=== PATIENT | male | born 1960 | race Caucasian/White ===

== ENCOUNTER 2023-08-13 18:25 | Emergency (ER) | payer OTHER, SELFPAY ==
[2023-08-13 18:30] VITALS: BP 160/93; PULSE 81; RESP 20; TEMP 36.8; O2SAT 98; BMI 29.6
--- NOTE | 2023-08-13 18:53 | ED_ITS ---
HPI - General Adult General Date Seen: 08/13/23 Chief complaint: Flank Pain Stated complaint: Lower L abdomen and back-vomit Time Seen by Provider: 08/13/23 18:27 History of Present Illness HPI narrative: This is a very pleasant previous healthy 62-year-old male presenting to the ER today with pain involving his left low back and left flank and left lower quadrant of his abdomen. He 1st noted some smiled symptoms in the left side of his abdomen this morning. He actually had 4 bowel movements this morning but not really having any diarrhea or bloody stool. No urinary symptoms. Later on this afternoon symptoms got worse and he had more intense severe pain affecting his left lower quadrant along the left groin. No pain radiating into his testicles. With that he became nauseous and had 1 episode of nonbilious, nonbloody vomiting. No fever or chills. After that he also developed pain in the left side of his low back/flank. Subsequently the pain is now more isolated only to the left flank it is not really bothering the left lower quadrant of the abdomen more. Still rates the pain is very severe and uncomfortable. Related Data Home Medications ?Medication ?Instructions ?Recorded ?Confirmed amlodipine 08/13/23 Allergies Allergy/AdvReac Type Severity Reaction Status Date / Time No Known Drug Allergies Allergy Verified 08/13/23 18:34 PFSH PFS Social History Non-prescribed substance use: denies use Exam Narrative: Exam Narrative: Constitutional: Appears well-developed and well-nourished. Alert. Conversant. Non toxic. HENT: Head: Atraumatic. Nose: Nose normal. Mouth/Throat: Oral mucosa is clear and moist. no trismus. Eyes: Conjunctivae normal. EOM normal. Pupils equal, round, and reactive to light. No scleral icterus. Neck: Normal range of motion. Neck supple. No tracheal deviation present. Cardiovascular: Normal rate, regular rhythm. No gallop. No friction rub. No murmur heard. Symmetric radial artery pulses Pulmonary/Chest: Effort normal. No stridor. No respiratory distress. No wheezes. No rales. No rhonchi . No tenderness. Abdominal: Soft. Bowel sounds normal. No distension. No mass. Mild left low back/left flank tenderness. No left lower quadrant tenderness. No upper abdominal tenderness. No right-sided tenderness. No rebound. No guarding. No inguinal masses or hernia. Musculoskeletal: RUE: Normal range of motion. No tenderness. No deformity LUE: Normal range of motion. No tenderness. No deformity RLE: Normal range of motion. No edema. No tenderness. No deformity LLE: Normal range of motion. No edema. No tenderness. No deformity Neurological: Alert and oriented to person, place, and time. Normal strength. CN II-VII intact. No sensory deficit. GCS eye subscore is 4. GCS verbal subscore is 5. GCS motor subscore is 6. Normal coordination Skin: Skin is warm and dry. No rash noted. No pallor. Normal capillary refill. Psychiatric: Normal mood. Normal affect. Const: Vital Signs, click to edit/add: Vital Signs - 24 hr 08/13/23 18:30 08/13/23 19:26 08/13/23 20:21 Temperature 98.2 F Pulse Rate [Pulse Oximeter] 81 68 Respiratory Rate 20 Blood Pressure [Ri t Upper Arm] 160/93 H Pulse Oximetry 98 92 95 Oxygen Delivery Me thod Room Air Room Air Course Vital Signs Vital signs: Initial Vital Signs Temperature 98.2 F 08/13/23 18:30 Temperature Source Temporal Artery Scan 08/13/23 18:30 Pulse Rate 81 08/13/23 18:30 Respiratory Rate 20 08/13/23 18:30 Blood Pressure 160/93 H 08/13/23 18:30 Blood Pressure Mean 115 H 08/13/23 18:30 Blood Pressure Position Standing 08/13/23 18:30 Pulse Oximetry 98 08/13/23 18:30 Oxygen Delivery Method Room Air 08/13/23 18:30 Vital Signs Temperature 98.2 F 08/13/23 18:30 Pulse Rate 81 08/13/23 18:30 Respiratory Rate 20 08/13/23 18:30 Blood Pressure 160/93 H 08/13/23 18:30 Pulse Oximetry 98 08/13/23 18:30 Oxygen Delivery Method Room Air 08/13/23 18:30 Temperature 98.2 F 08/13/23 18:30 Pulse Rate 68 08/13/23 20:21 Respiratory Rate 20 08/13/23 18:30 Blood Pressure 160/93 H 08/13/23 18:30 Pulse Oximetry 95 08/13/23 20:21 Oxygen Delivery Method Room Air 08/13/23 20:21 Medications Administered Medications: Generic Name Dose Route Start Last Admin Trade Name Freq PRN Reason Stop Dose Admin Hydromorphone HCl 0.5 mg 08/13/23 18:53 08/13/23 19:00 Hydromorphone 0.5 Mg/0.5 Ml Inj IVP 0.5 mg Q1H PRN Administration Pain Hydromorphone HCl 0.5 mg 08/13/23 19:28 08/13/23 19:38 Hydromorphone 0.5 Mg/0.5 Ml Inj IVP 0.5 mg Q1H PRN Administration Pain Discontinued Medications Generic Name Dose Route Start Last Admin Trade Name Freq PRN Reason Stop Dose Admin Ketorolac Tromethamine 15 mg 08/13/23 18:53 08/13/23 19:00 Ketorolac 15 Mg/Ml Inj IVP 08/13/23 18:54 15 mg ONCE ONE Administration Ondansetron HCl 4 mg 08/13/23 18:53 08/13/23 19:00 Ondansetron 2 Mg/Ml Inj IVP 08/13/23 18:54 4 mg ONCE ONE Administration Medical Decision Making MDM Narrative Medical decision making narrative: This patient presents with left lower quadrant and left flank pain. Differential Diagnosis considered includes: Ureterolithiasis, UTI, pyelonephritis, AAA, colitis, diverticulitis, volvulus, among others. No right- sided pain makes appendicitis or cholecystitis much less likely. No evidence for shingles. No recent trauma. No sign of abdominal wall bruising. No trouble breathing or thoracic pain to suggest PE, pneumonia, pleural effusion, dissection. At this point, the evaluation indicates that ureterolithiasis is the cause of the patient's symptoms. There are no signs that this is an infected stone. The patient's pain is controlled in ED. The patient is hemodynamically stable in ED. I think the patient is safe for discharge. The plan is discharge to home with recheck by primary care physician or urology.They will return to the ED right away if symptoms worsen (e.g Return immediately for fevers greater than 100.4, increasing pain, other new symptoms develop). Ureterolithiasis precautions for home. Prescriptions for pain control, nausea control, and flomax were provided. The patient's questions were answered. 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 Discussed in detail with the patient and his . Patient will follow-up with primary care for surveillance he may need annual CT scans to monitor the splenic artery see if it is expanding. Lab Data Labs: Lab Results 08/13/23 08/13/23 Range/Units 18:40 18:45 WBC 6.13 (4.50-11.00) K/uL RBC 5.32 (4.30-5.90) m/uL Hgb 15.4 (13.5-17.5) gm/dL Hct 44.2 (37.0-53.0) % MCV 83 (80-100) fL MCH 29 (26-34) pg MCHC 35 (32-36) gm/dL RDW Coeff of Lucian 13.1 (11.5-15.5) % Plt Count 210 (140-440) K/uL Neut % (Auto) 59.2 (42.0-72.0) % Lymph % (Auto) 31.6 (20-44) % [place] % (Auto) 7.7 (0.0-11.0) % Eos % (Auto) 0.8 (0.0-7.0) % Baso % (Auto) 0.5 (0.0-3.0) % Neut # (Auto) 3.63 (1.7-7.0) K/uL Lymph # (Auto) 1.94 (0.90-2.90) K/uL [place] # (Auto) 0.50 (0.00-0.90) K/UL Eos # (Auto) 0.05 (0.00-0.50) K/uL Baso # (Auto) 0.03 (0.00-0.30) K/uL Abs Immat Gran (auto) 0.01 (0.00-0.30) K/uL Imm/Tot Granulo (auto) 0.2 % Sodium 142 (135-149) mmol/L Potassium 3.1 L (3.6-5.1) mmol/L Chloride 106 (96-114) mmol/L Carbon Dioxide 27 (20-32) mmol/L Anion Gap 9 (7-15) mEq/L BUN 16 (7-30) mg/dL Creatinine 0.9 (0.5-1.5) mg/dL Estimated Creat Clear 92.96 Estimated GFR 98 ml/min Glucose 178 H (60-115) mg/dL Calcium 9.5 (8.4-10.6) mg/dL Urine Color Yellow (Yellow) Urine Appearance Clear (Clear) Urine pH 7.0 (5.0-8.5) Ur Specific [place] 1.020 (1.000-1.030) Urine Protein Negative (Negative) Urine Glucose (UA) Negative (Negative) Urine Ketones Negative (Negative) Urine Blood Trace-intact A (Negative) Urine Nitrite Negative (Negative) Urine Bilirubin Negative (Negative) Urine Urobilinogen 0.2 (0.2-1.0) Ur Leukocyte Esterase Negative (Negative) Urine RBC 2-5 A (0-2) Urine WBC 2-5 (0-5) Other Sediment Moderate A (None) Urine Bacteria Few A (None) Imaging Data CT scan - abdomen: Attestation: I have reviewed the pertinent imaging results. My impression: 3 mm left UVJ kidney stone with hydronephrosis. Radiologist's impression: IMPRESSION: 1. [id number] left-sided hydronephrosis and hydroureter secondary to a 3.3 mm stone at the left ureterovesical junction. No additional urinary tract calculi are identified. 2. Calcified splenic granulomas. Well-circumscribed peripherally calcified 1.5 cm splenic artery aneurysms. Tiny left hepatic lobe cysts. Discharge Plan Discharge Clinical Impression: Kidney stone Patient Disposition: Home, Self-Care Condition: Stable Instructions: Kidney Stones (ED), Renal Colic (ED), How to Strain Your Urine (ED) Additional Instructions: As we discussed, try to drink adequate fluids stay hydrated while your passing this kidney stone. You can use Tylenol or ibuprofen if needed for pain. However, for severe pain use the prescription pain killer [place]. Use Zofran if needed for nausea. Take the Flomax once daily until you passed your kidney stone. This medication can help relax the tube were your kidney stone is stuck. Use caution with prescription pain killers because they do cause drowsiness, dizziness, so he should not drive a vehicle or operate machinery for 6 hours after taking a pain pill. Pain pills can also cause constipation. Pain pills can be addictive so do not take any more of your pain medication than absolutely necessary. If you have worsening symptoms such as uncontrolled pain, high fever, uncontrolled vomiting, come back to your nearest ER right away. If you have not passed this kidney stone within the next 1-2 weeks, you should follow-up with urology. You can contact your insurance company to see which Urology group is in network. Also, you could try to arrange follow-up with [facility]. Call their clinic [phone] to arrange a follow-up appointment. Although it is not related to your pain today, your CT scan shows that you have a small aneurysm of the splenic artery. This is something that you should monitor 3 your regular doctor's office. You may need to get a scan of your abdomen once a year for a couple of years to monitor this to see if it is getting larger. Prescriptions: No Action amlodipine Follow Up/Referrals: Chhaya Hogan MD [Primary Care Provider] - Stand Alone Forms: [employer] Info Instructions
--- NOTE | 2023-08-13 18:53 | CRLHL7_ITS ---
For Patients: As a result of the Century Cures Act, medical imaging exams and procedure reports are released immediately into your electronic medical record. You may view this report before your referring provider. If you have questions, please contact your health care provider. INDICATION: Left flank pain. Left lower quadrant abdominal pain. TECHNIQUE: Noncontrast CT of the abdomen and pelvis. COMPARISON: None. FINDINGS: Clear included lung bases. The unenhanced liver is negative for masses or biliary dilatation. There are 2-3 very tiny cysts within the left hepatic lobe. The spleen is within normal limits. Calcified splenic granulomas. Well-circumscribed densely calcified splenic artery aneurysm at the splenic hilus measuring up to 1.5 cm, image 45 series 2. The unenhanced pancreas, gallbladder, adrenal glands, and right kidney are within normal limits. [id number] left-sided hydronephrosis and hydroureter secondary to a 3.3 mm stone at the left ureterovesical junction image 143 series 2. No other urinary tract calculi identified. Scattered vascular calcification within a normal caliber abdominal aorta and iliac arteries. Slight prostatic enlargement. Normal seminal vesicles. There is no evidence for abdominal pelvic ascites or lymphadenopathy. There is no evidence for bowel obstruction or ileus. Normal appendix. No diverticular disease. The included skeleton is negative for fractures. IMPRESSION: 1. [id number] left-sided hydronephrosis and hydroureter secondary to a 3.3 mm stone at the left ureterovesical junction. No additional urinary tract calculi are identified. 2. Calcified splenic granulomas. Well-circumscribed peripherally calcified 1.5 cm splenic artery aneurysms. Tiny left hepatic lobe cysts. Please note that all CT scans at this facility use dose modulation, iterative reconstruction, and/or weight-based dosing when appropriate to reduce radiation dose to as low as reasonably achievable. Dictated by Jacinto Balderrama MD @ 08/13/2023 7:58:12 PM (Electronically Signed)
[2023-08-13 18:57] LABS: Appearance Urine Clear (Clear); Bilirubin Urine Negative (Negative); Blood Urine Trace-intact (Negative); Color Urine Yellow (Yellow); Glucose Urine Negative (Negative); Ketones Urine Negative (Negative); Leukocyte Esterase Urine Negative (Negative); Nitrite Urine Negative (Negative); Protein Urine Negative (Negative); Urobilinogen Urine 0.2 (0.2-1.0)
[2023-08-13] MEDS: HYDROmorphone 0.5 mg/0.5 ml inj IVP ×2 (19:00→19:38)
[2023-08-13] MEDS: ONDANSETRON 2 MG/ML inj 4 MG IVP (19:00)
[2023-08-13] MEDS: KETOROLAC 15 MG/ML inj IVP (19:00)
[2023-08-13 19:06] LABS: Basophils Absolute Auto 0.03 K/uL (0.00-0.30); Basophils Percent Auto 0.5 % (0.0-3.0); Eosinophils Absolute Auto 0.05 K/uL (0.00-0.50); Eosinophils Percent Auto 0.8 % (0.0-7.0); Hematocrit 44.2 % (37.0-53.0); Hemoglobin* 15.4 gm/dL (13.5-17.5); Immature Granulocytes Abs Auto 0.01 K/uL (0.00-0.30); Immature Granulocytes Pct Auto 0.2 %; Lymphocytes Absolute Auto 1.94 K/uL (0.90-2.90); Lymphocytes Percent Auto 31.6 % (20-44); Mean Corpuscular HGB Conc 35 gm/dL (32-36); Mean Corpuscular Hemoglobin 29 pg (26-34); Mean Corpuscular Volume 83 fL (80-100); Monocytes Percent Auto 7.7 % (0.0-11.0); Neutrophils Absolute Auto 3.63 K/uL (1.7-7.0); Neutrophils Percent Auto 59.2 % (42.0-72.0); Platelet Count* 210 K/uL (140-440); RDW Coefficient of Variation % 13.1 % (11.5-15.5); Red Blood Count 5.32 m/uL (4.30-5.90); White Blood Count* 6.13 K/uL (4.50-11.00)
[2023-08-13 19:12] LABS: Bacteria Urine Few; Other Sediment Urine Moderate
[2023-08-13 19:14] LABS: Slide Review Reflex No
[2023-08-13 19:19] LABS: Chloride* 106 mmol/L (96-114); Potassium* 3.1 mmol/L (3.6-5.1); Sodium* 142 mmol/L (135-149)
[2023-08-13 19:22] LABS: Anion Gap 9 mEq/L (7-15); Blood Urea Nitrogen* 16 mg/dL (7-30); Carbon Dioxide* 27 mmol/L (20-32); Creatinine* 0.9 mg/dL (0.5-1.5); Est. Creatinine Clearance* 92.96; Estimated Glomerular Filt Rate 98 ml/min
[2023-08-13 19:23] LABS: Calcium* 9.5 mg/dL (8.4-10.6); Glucose* 178 mg/dL (60-115)
[2023-08-13 19:26] VITALS: O2SAT 92
[2023-08-13 20:21] VITALS: PULSE 68; O2SAT 95
[2023-08-13] MEDS: HYDROCODONE-ACETAMIN 5-325 MG 1 TAB PO (20:30)
== END 2023-08-13 20:49 | disposition home or self-care (01) ==
PROVIDERS: Emergency Provider Emergency Medicine; PCP Family Medicine
DX: N20.0 Calculus of kidney (principal)
CPT/HCPCS: 36415; 74176; 80048; 81001; 85025; 87086; 94761; 99283; 99284; A9270; J1170; J1885; J2405

== ENCOUNTER 2024-02-01 13:55 | Emergency (ER) | payer SELFPAY ==
[2024-02-01] VITALS (25 sets, daily range): BP systolic 128–162; BP diastolic 81–94; PULSE 67–84; RESP 16–18; TEMP 36.6; O2SAT 95–100; BMI 29.3
--- NOTE | 2024-02-01 14:15 | ED_ITS ---
HPI - General Adult General Time Seen by Provider: 14:41 Date Seen: 02/01/24 Chief complaint: Chest Pain Stated complaint: Chest Pain Time Seen by Provider: 02/01/24 14:15 Source: patient and RN notes reviewed Mode of arrival: ambulatory Limitations: no limitations History of Present Illness HPI narrative: This 63-year-old male is coming in with concern of right-sided chest symptoms as well as headache. His headache is actually more concerning to him than his chest symptoms. He admits that he started really to note the chest symptoms after he got his coronary CT calcium score back. He had a coronary artery calcium score of 38.6 consistent with mild calcification, this appears to be in the LAD and the RCA. The left main and circumflex was 0. He had this done on 01/21/2024. He states it was done at his doctor's recommendation. He thinks this is probably been there, thought it was reflux. He does take a lot of Tums. He has not really noted any change with exercise, he walks 3 times a week about 2-1/2 miles with hills. He notes no dyspnea on exertion or shortness of breath, no chest symptoms with activity but admits he really has not done any walking since he got this cardiac report back. He states it just feels like some buddies pushing on the chest, almost like when your arm is grabbed where you can feel it but there is no pain. It will come and go, sometimes last longer about 15-20 minutes sometimes less than 5 minutes. He has never had a stress test before, notes no family history of cardiac disease that he is aware of. He has not had any underlying illness or recent illness. He does have underlying obstructive sleep apnea and uses a CPAP, he states this is what prompted his doctor recommend this test to him. Is on amlodipine for hypertension, did start Crestor once they had this result back. He has also been given 81 mg aspirin to take daily. He states he has underlying hemochromatosis that was diagnosed. He notes that he was told he had something in his abdomen, was diagnosed with kidney stones this summer. Did look at that CT report and he was found to have hepatic cysts and a splenic aneurysm 1.5 cm with peripheral calcification on his CT done for kidney stones on 08/13/2023. He notes that left-sided headache that is been present on and off for about 2 weeks is more concerning to him. There is no visual changes, is felt in the left caodaism. No trauma, no fevers or chills. He notes he always feels somewhat achy in general, there is nothing out of the ordinary. Said multiple orthopedic surgeries, 3 on his ankle and has an upcoming orthopedic appointment in March to re-evaluate this right ankle. He has had right shoulder surgery with plate and 6 screws in it. He has had right elbow surgery, left knee surgery. Can not really safe he is having any symptoms right now ir not, certainly is not noting any as far as headache or chest symptoms. Related Data Home Medications ?Medication ?Instructions ?Recorded ?Confirmed amlodipine 08/13/23 aspirin 81 mg tablet,delayed 81 mg PO DAILY 02/01/24 02/01/24 release rosuvastatin 10 mg tablet 10 mg PO QPM 02/01/24 02/01/24 Previous Rx's ?Medication ?Instructions ?Recorded tamsulosin 0.4 mg capsule (Flomax) 0.4 mg PO DAILY #7 caps 08/13/23 Allergies Allergy/AdvReac Type Severity Reaction Status Date / Time No Known Drug Allergies Allergy Verified 02/01/24 18:26 Review of Systems Status of ROS: Reports: 6 or more systems reviewed and unremarkable except as noted in History and below [facility] Social History Non-prescribed substance use: denies use Exam Const: Vital Signs, click to edit/add: Vital Signs - 24 hr 02/01/24 14:02 02/01/24 14:08 02/01/24 14:15 Temperature 97.8 F Pulse Rate 69 74 Pulse Rate [Pulse Oximeter] 84 Respiratory Rate 18 Blood Pressure Blood Pressure [Ri ght Upper Arm] 162/88 H Pulse Oximetry 99 99 96 Oxygen Delivery Me thod Room Air 02/01/24 14:21 02/01/24 14:30 02/01/24 14:41 Temperature Pulse Rate 77 70 76 Pulse Rate [Pulse Oximeter] Respiratory Rate Blood Pressure 128/84 129/84 Blood Pressure [Ri ght Upper Arm] Pulse Oximetry 95 96 96 Oxygen Delivery Me thod 02/01/24 14:45 02/01/24 15:00 02/01/24 15:01 Temperature Pulse Rate 82 71 70 Pulse Rate [Pulse Oximeter] Respiratory Rate 16 Blood Pressure 148/85 H Blood Pressure [Ri ght Upper Arm] Pulse Oximetry 100 97 98 Oxygen Delivery Me thod 02/01/24 15:01 02/01/24 15:02 02/01/24 15:15 Temperature Pulse Rate 70 68 71 Pulse Rate [Pulse Oximeter] Respiratory Rate Blood Pressure 148/85 H Blood Pressure [Ri ght Upper Arm] Pulse Oximetry 98 98 98 Oxygen Delivery Me thod 02/01/24 15:22 02/01/24 15:30 02/01/24 15:41 Temperature Pulse Rate 74 73 79 Pulse Rate [Pulse Oximeter] Respiratory Rate Blood Pressure 133/84 137/88 Blood Pressure [Ri ght Upper Arm] Pulse Oximetry 99 99 96 Oxygen Delivery Me thod 02/01/24 15:45 02/01/24 16:14 02/01/24 16:15 Temperature Pulse Rate 69 80 84 Pulse Rate [Pulse Oximeter] Respiratory Rate Blood Pressure Blood Pressure [Ri ght Upper Arm] Pulse Oximetry 97 98 99 Oxygen Delivery Me thod 02/01/24 16:21 02/01/24 16:30 02/01/24 16:41 Temperature Pulse Rate 74 68 75 Pulse Rate [Pulse Oximeter] Respiratory Rate Blood Pressure 133/94 H 140/81 H Blood Pressure [Ri ght Upper Arm] Pulse Oximetry 96 97 95 Oxygen Delivery Me thod 02/01/24 16:42 02/01/24 16:45 02/01/24 17:00 Temperature Pulse Rate 67 72 77 Pulse Rate [Pulse Oximeter] Respiratory Rate Blood Pressure Blood Pressure [Ri ght Upper Arm] Pulse Oximetry 97 96 96 Oxygen Delivery Me thod 02/01/24 17:01 02/01/24 17:15 Temperature Pulse Rate 78 75 Pulse Rate [Pulse Oximeter] Respiratory Rate 16 Blood Pressure 149/84 H Blood Pressure [Ri ght Upper Arm] Pulse Oximetry 96 100 Oxygen Delivery Me od This 63-year-old male is alert, interactive, no apparent distress, maybe peers very mildly anxious. Sclera clear, conjugate gaze, symmetrical facial function, speech is normal. Neck is supple, no adenopathy, no no jugular venous diste nsion. He sits up easily, lung sounds are clear with good air entry, no wheezing or crackles, no tachypnea. CV regular rate and rhythm, no murmur, normal S1-S2, S3-S4. Cannot reproduce chest pain by chest wall palpation. Abdomen is soft, no rebound or guarding, no organomegaly or tenderness. He has no lower extremity edema, patient ambulated into the ED of his own accord. He is following commands. Neuro is grossly intact as far as muscular and sensory. Note no tremors. Documenting provider has reviewed patient's vital signs: yes Course Course ED Course: This patient has a mildly positive calcium score on CT with observation of mild right chest symptoms now, probable underlying GERD. He also is complaining of headache symptoms and has been noted to have a splenic aneurysm. With this left-sided headache, do think we need inflammatory markers as well as obtaining head imaging, a CTA imaging to rule out any dissection or aneurysm. He most definitely should have cardiac stress testing but will ensure normal troponin. Given the chronicity of his symptoms in the intermittent nature, following serial cardiac enzymes would be beneficial FU was presenting with chest pain or had definite defined episode of chest pain today. He has been noting chest pain intermittently since the 20 of January when he had this test done. I believe this patient has a normal troponin and does not have any escalating symptoms here, he should be cleared to have a cardiac stress test. Reevaluation(s) Time of Reevaluation #1: 17:22 Reevaluation #1: Reviewed with patient his CT images, there is no vascular abnormality he may have a pituitary adenoma. His potassium is low, will give him oral potassium. If he does have a pituitary adenoma that is producing ACTH, could cause him to waste potassium. He will need to follow up outpatient for MRI imaging to further evaluate this, also recommended blood work, he states he did make a follow-up with his primary and will be getting blood work. Screening blood work could be added to this, he will bring CT reports to primary provider. He seems to be getting paroxysm is a of pain, he is feeling this along the left lower ribcage. He states his chest pain used to be higher, is feeling left lower ribcage pain right now. Almost seems like it is a muscle spasm which would coincide with potentially is hypokalemia. On re-evaluation, has no abdominal pain, certainly no left upper quadrant abdominal pain or masses noted. Did discuss potential doing CT abdomen pelvis but he is declining at this point. We are waiting his follow-up point of care troponin, was just drawn. Time of Reevaluation #2: 17:45 Reevaluation #2: Reviewed negative follow-up troponin with patient. As I was talking to him, he is grimacing, grabbing that left lower chest wall, left upper abdominal wall. Certainly seems like it might be muscular spasm but did offer CT imaging again, he agrees to do this. Will do chest abdomen pelvis to see there is anything further underlying this with this left flank discomfort, left upper abdominal wall/lower chest wall pain. He tolerated the oral potassium, is not giving him increased GI symptoms. Is still having this sharp type pain but is on the left side. Will order normal saline after this CT to help flush contrast from system. Time of Reevaluation #3: 19:31 Reevaluation #3: Patient did call his and we reviewed test results while she was on the phone. We have discussed cardiac stress testing, they would prefer that I just order it, the understand it will be done here. It will need to go through prior authorization. He will still need to follow up with his primary care provider to have brain MRI imaging done to further evaluate for pituitary adenoma, will need further blood work done as well as potassium recheck. Questions were answered. He does think he will be able to walk on the treadmill, did advise him to potentially take some Tylenol before coming to that stress test. Vital Signs Vital signs: Initial Vital Signs Temperature 97.8 F 02/01/24 14:02 Temperature Source Temporal Artery Scan 02/01/24 14:02 Pulse Rate 84 02/01/24 14:02 Respiratory Rate 18 02/01/24 14:02 Blood Pressure 162/88 H 02/01/24 14:02 Blood Pressure Mean 112 H 02/01/24 14:02 Blood Pressure Position Sitting 02/01/24 14:02 Pulse Oximetry 99 02/01/24 14:02 Oxygen Delivery Method Room Air 02/01/24 14:02 Vital Signs Temperature 97.8 F 02/01/24 14:02 Pulse Rate 84 02/01/24 14:02 Respiratory Rate 18 02/01/24 14:02 Blood Pressure 162/88 H 02/01/24 14:02 Pulse Oximetry 99 02/01/24 14:02 Oxygen Delivery Method Room Air 02/01/24 14:02 Temperature 97.8 F 02/01/24 14:02 Pulse Rate 75 02/01/24 17:15 Respiratory Rate 16 02/01/24 17:15 Blood Pressure 149/84 H 02/01/24 17:01 Pulse Oximetry 100 02/01/24 17:15 Oxygen Delivery Method Room Air 02/01/24 14:02 Medications Administered Medications: Discontinued Medications Generic Name Dose Route Start Last Admin Trade Name Freq PRN Reason Stop Dose Admin Sodium Chloride 500 mls @ 500 mls/hr 02/01/24 18:25 02/01/24 19:21 0.9 % Sodium Chloride 500 Ml IV 02/01/24 19:24 Infused .Q1H ONE Infusion Potassium Bicarbonate 50 meq 02/01/24 17:23 02/01/24 17:33 Potassium Bicarb 25 Meq Effervescent Tab PO 02/01/24 17:24 50 meq ONCE ONE Administration Medical Decision Making Lab Data Lab results reviewed: Yes I reviewed the patient's lab results Labs: Lab Results 02/01/24 02/01/24 02/01/24 Range/Units 14:05 14:05 15:03 WBC 6.67 (4.50-11.00) K/uL RBC 5.41 (4.30-5.90) m/uL Hgb 15.6 (13.5-17.5) gm/dL Hct 44.8 (37.0-53.0) % MCV 83 (80-100) fL MCH 29 (26-34) pg MCHC 35 (32-36) gm/dL RDW Coeff of Lucian 13.5 (11.5-15.5) % Plt Count 224 (140-440) K/uL Neut % (Auto) 60.0 (42.0-72.0) % Lymph % (Auto) 30.1 (20-44) % Mingo % (Auto) 8.2 (0.0-11.0) % Eos % (Auto) 1.2 (0.0-7.0) % Baso % (Auto) 0.4 (0.0-3.0) % Neut # (Auto) 3.99 (1.7-7.0) K/uL Lymph # (Auto) 2.01 (0.90-2.90) K/uL Mingo # (Auto) 0.50 (0.00-0.90) K/UL Eos # (Auto) 0.08 (0.00-0.50) K/uL Baso # (Auto) 0.03 (0.00-0.30) K/uL Abs Immat Gran (auto) 0.01 (0.00-0.30) K/uL Imm/Tot Granulo (auto) 0.1 % ESR 7 (2-15) mm/hr Sodium 143 (135-149) mmol/L Potassium 3.0 L (3.6-5.1) mmol/L Chloride 106 (96-114) mmol/L Carbon Dioxide 30 (20-32) mmol/L Anion Gap 7 (7-15) mEq/L BUN 18 (7-30) mg/dL Creatinine 0.9 (0.5-1.5) mg/dL Estimated Creat Clear 82.62 Estimated GFR 97 ml/min Glucose 112 (60-115) mg/dL Calcium 9.2 (8.4-10.6) mg/dL Magnesium 2.2 (1.5-2.6) mg/dL Total Bilirubin 1.2 (0.1-1.5) mg/dL AST 23 (12-35) U/L ALT 31 (4-50) U/L Alkaline Phosphatase 69 (40-150) U/L Troponin I < 0.01 L Cancelled (0.01-0.04) ng/mL C-Reactive Protein < 0.5 L (0.5-1.0) mg/dL NT-Pro-B Natriuret Pep < 20 pg/mL Total Protein 7.6 (6.0-8.3) g/dL Albumin 4.7 (3.3-5.0) g/dL POC Troponin I 0.00 L (0.01-0.04) ng/ml 02/01/24 Range/Units 17:05 WBC (4.50-11.00) K/uL RBC (4.30-5.90) m/uL Hgb (13.5-17.5) gm/dL Hct (37.0-53.0) % MCV (80-100) fL MCH (26-34) pg MCHC (32-36) gm/dL RDW Coeff of Lucian (11.5-15.5) % Plt Count (140-440) K/uL Neut % (Auto) (42.0-72.0) % Lymph % (Auto) (20-44) % Mingo % (Auto) (0.0-11.0) % Eos % (Auto) (0.0-7.0) % Baso % (Auto) (0.0-3.0) % Neut # (Auto) (1.7-7.0) K/uL Lymph # (Auto) (0.90-2.90) K/uL Mingo # (Auto) (0.00-0.90) K/UL Eos # (Auto) (0.00-0.50) K/uL Baso # (Auto) (0.00-0.30) K/uL Abs Immat Gran (auto) (0.00-0.30) K/uL Imm/Tot Granulo (auto) % ESR (2-15) mm/hr Sodium (135-149) mmol/L Potassium (3.6-5.1) mmol/L Chloride (96-114) mmol/L Carbon Dioxide (20-32) mmol/L Anion Gap (7-15) mEq/L BUN (7-30) mg/dL Creatinine (0.5-1.5) mg/dL Estimated Creat Clear Estimated GFR ml/min Glucose (60-115) mg/dL Calcium (8.4-10.6) mg/dL Magnesium (1.5-2.6) mg/dL Total Bilirubin (0.1-1.5) mg/dL AST (12-35) U/L ALT (4-50) U/L Alkaline Phosphatase (40-150) U/L Troponin I (0.01-0.04) ng/mL C-Reactive Protein (0.5-1.0) mg/dL NT-Pro-B Natriuret Pep pg/mL Total Protein (6.0-8.3) g/dL Albumin (3.3-5.0) g/dL POC Troponin I 0.00 L (0.01-0.04) ng/ml Imaging Data CT scan - head: Attestation: I have reviewed the pertinent imaging results. Radiologist's impression: Patient: YAKELIN HOOKER Facility:?[facility] Patient ID:?[id number] Site Patient ID:?[id number]. Site :?1960 Study:?CT-Head WITHOUT-02/01/2024 4:13:52 PM Ordering Physician:?Josi Ceron Final Report: Indication: SEVERE LT SIDED TEMPORAL GOMEZ INTERMITTENT Technique: CT of the head without contrast. Coronal and sagittal reformats. Bone and soft tissue windows. Comparison: No prior studies available for comparison at this institution. Findings: No acute intracranial hemorrhage or extra-axial collection. No evidence of acute cortical infarction. No mass effect or midline shift. Normal cerebral volume. The ventricles are normal in size, shape and contour. There is normal hagen and white matter differentiation. There is a 1.3 x 1.3 cm low-density sellar mass that could represent adenoma. This appears to abut the optic chiasm without mass effect. The orbital contents are normal. No calvarial fractures. No lytic or sclerotic osseous lesions within the calvarium or skull base. Scalp and other imaged soft tissue structures are normal. Mastoid air cells are clear. Small fluid level in the right sphenoid sinus. Impression: 1. No acute intracranial abnormality. 2. There is suggestion of a 1.3 x 1.3 cm low-density sellar mass that could represent adenoma. This appears to abut the optic chiasm without mass effect. MRI with contrast is offered for further evaluation. Please note that all CT scans at this facility use dose modulation, iterative reconstruction, and/or weight-based dosing when appropriate to reduce radiation dose to as low as reasonably achievable. Dictated by Mynor Scott MD @ 02/01/2024 4:58:44 PM (Electronic Signature) CT- Other: Attestation: I have reviewed the pertinent imaging results. Radiologist's impression: Patient: YAKELIN HOOKER Facility:?[facility] Patient ID:?[id number] Site Patient ID:?[id number]. Site :?1960 Study:?CT-Head Angio W/ 95CC ISOVUE 370-02/01/2024 4:14:19 PM Ordering Physician:?Josi Ceron Preliminary Report: 1. No evidence of proximal artery occlusion, high grade stenosis, aneurysm, diss ection, or vascular malformation. 2. Final report per neurointerventional radiology service. Read by:?Mynor Scott MD @02/01/2024 4:59:01 PM Patient: YAKELIN HOOKER Facility:?[facility] Patient ID:?[id number] Site Patient ID:?[id number] Site :?1960 Study:?CT-Neck Angio W/ 95CC ISOVUE 370-02/01/2024 4:14:50 PM Ordering Physician:?Josi Ceron Preliminary Report: 1. No evidence of proximal artery occlusion, high grade stenosis, aneurysm, dissection, or vascular malformation. 2. Diminutive left vertebral artery. Dominant right vertebral artery. Final report per neurointerventional radiology service. Read by:?Mynro Scott MD @02/01/2024 4:59:27 PM Chest x-ray: Attestation: I have reviewed the pertinent imaging results. My impression: I do not appreciate any acute cardiopulmonary pathology on my preliminary review. Radiologist's impression: Patient: YAKELIN HOOKER Facility:?[facility] Patient ID:?[id number] Site Patient ID:?[id number] Site :?1960 Study:?XRay-Chest Portable 1V-02/01/2024 3:21:17 PM Ordering Physician:?Josi Ceron Final Report: INDICATION: : Right chest pain, abnormal CT calcium score COMPARISON: None TECHNIQUE: One view(s) of the chest FINDINGS: The cardiomediastinal silhouette and pulmonary vasculature are unremarkable. There is no focal airspace consolidation, pleural effusion, or pneumothorax. No displaced fractures. IMPRESSION: No acute cardiopulmonary process. Dictated by Gabriel Hernandez MD @ 02/01/2024 3:39:54 PM (Electronic Signature) CT Chest/Ab/Pelvis: Attestation: I have reviewed the pertinent imaging results. Radiologist's impression: Patient: YAKELIN HOOKER Facility:?[facility] Patient ID:?[id number] Site Patient ID:?[id number] Site :?1960 Study:?CT-Chest/Abd/Pelvis W/ 103CC ISOVUE 370-02/01/2024 6:34:54 PM Ordering Physician:?Josi Jie Final Report: INDICATION: Left lower chest/upper abdominal pain. COMPARISON: None available. TECHNIQUE: CT of the chest, abdomen and pelvis with 103 cc of Isovue 370 intravenous contrast. Please note that all CT scans at this facility use dose modulation, iterative reconstruction, and/or weight-based dosing when appropriate to reduce radiation dose to as low as reasonably achievable. FINDINGS: THORAX Visualized Lower Neck: No lower cervical adenopathy. Lungs: No significant pulmonary findings. Inferior lingular segment left upper lobe pleural-based curvilinear opacity consistent with subsegmental atelectasis or nonspecific minor fibrosis. Pleura: No pleural effusion. No pneumothorax. Mediastinum: Thoracic aorta and pulmonary trunk are normal in caliber. Heart and pericardium are without significant findings. Trachea and esophagus are normal in appearance. No mediastinal lymphadenopathy. ABDOMEN Liver: Normal contour and attenuation. No significant focal lesion. Ill-defined arterial phase enhancing focus in the inferior right hepatic lobe (2; 100) which fades to isointensity on the portal venous phase images most consistent with a nonspecific vascular malformation. Simple left hepatic lobe cysts. No in trahepatic biliary ductal dilatation. Patent portal veins. Patent hepatic veins. Gallbladder: Normal size. No pericholecystic inflammatory changes. Normal common duct caliber. Pancreas: Normal contour and attenuation. No peripancreatic inflammatory changes. No significant focal lesion. Normal main duct caliber. Spleen: Not enlarged. No significant focal lesion. Punctate splenic calcifications c onsistent with the sequela of old granulomatous disease are noted incidentally. 1.6 cm splenic artery aneurysm (2; 166). Patent splenic artery and vein. Adrenal Glands: Symmetrical adrenal glands. No significant focal lesion. Kidneys: Normal bilateral renal attenuation. 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 Bilateral parapelvic cysts. No nephrolith. No dilatation of the intrarenal collecting systems. No ureteral stone. Nondilated ureters. No filling defect within the opacified upper urinary tracts. Patent renal arteries and veins. Gastrointestinal tract: Normal caliber, attenuation and wall thickness of the gastrointestinal tract. No inflammatory changes. Normal small bowel mesentery. Normal appendix. Vascular: Minimal chronic aortoiliac atherosclerotic mural calcification. Abdominal aorta and its major proximal branches including the celiac, superior mesenteric, inferior mesenteric, renal, and bilateral common iliac arteries are patent. Patent superior mesenteric vein. Peritoneal Cavity/Retroperitoneum: No ascites. No adenopathy. PELVIS No bladder lesion is identified. Fat stranding about the seminal vesicles is consistent with seminal vesiculitis. No ascites. No adenopathy. SKELETON AND BODY WALL No acute or significant incidental findings. IMPRESSION: 1. No imaging findings to explain left lower chest/upper abdominal pain. 2. 1.6 cm splenic artery aneurysm. 3. Fat stranding about the seminal vesicles is consistent with seminal vesiculitis. 4. Incidental findings described above. Please note that all CT scans at this facility use dose modulation, iterative reconstruction, and/or weight-based dosing when appropriate to reduce radiation dose to as low as reasonably achievable. Dictated by Tera Medeiros MD @ 02/01/2024 7:25:35 PM (Electronic Signature) ECG Data Attestation: I personally reviewed and interpreted this ECG as follows: (Sinus rhythm, 78 beats per minute. PVC seen. Nonspecific ST segment changes but not diagnostic of any pattern of ischemia. No infarct noted.) Prior ECG tracings: not available for review Discharge Plan Discharge Clinical Impression: Hypokalemia Headache Qualifiers: Headache type: other headache syndrome Qualified Code(s): G44.89 - Other headache syndrome Chest pain Qualifiers: Chest pain type: other chest pain Qualified Code(s): R07.89 - Other chest pain Patient Disposition: Home, Self-Care Condition: Stable Instructions: Chest Pain (ED), Potassium Content of Foods List (ED), Hypokalemia (ED), General Headache (ED) Additional Instructions: Please keep your follow-up appointment with your primary care provider. Need to discuss cardiac stress test result if back, getting scheduled for brain MRI to further evaluate possible pituitary adenoma, having labs done for screening regarding pituitary adenoma. You also need your potassium rechecked within the next week. It is possible that a pituitary adenoma could be causing headaches. You can try Tylenol and ibuprofen per bottle directions to see if that aids with your headaches. Your cardiac enzymes are normal, no evidence that the current pain is causing changes that would indicate lack of blood flow in the heart or ischemia. I do not have a definite explanation why you are feeling this pain. With low potassium, muscle spasms can happen and there are muscles in your chest and abdominal wall. I have ordered a treadmill stress echo for you, this will get prior authorized you will get scheduled. In the meantime, if you have further concerns, worsening symptoms, do recommend re-evaluation. Activity Level: Activity as Tolerated Discharge Diet: Heart Healthy (2 gm sodium, low fat) Prescriptions: No Action aspirin 81 mg tablet,delayed release (DR/EC) 81 mg PO DAILY rosuvastatin 10 mg tablet 10 mg PO QPM amlodipine tamsulosin [Flomax] 0.4 mg capsule 0.4 mg PO DAILY Qty: 7 2RF Follow Up/Referrals: Chhaya Hogan MD [Primary Care Provider] - Stand Alone Forms: Short Fuze Info Instructions
--- NOTE | 2024-02-01 15:01 | CRLHL7_ITS ---
For Patients: As a result of the Cures Act, medical imaging exams and procedure reports are released immediately into your electronic medical record. You may view this report before your referring provider. If you have questions, please contact your health care provider. INDICATION: : Right chest pain, abnormal CT calcium score COMPARISON: None TECHNIQUE: One view(s) of the chest FINDINGS: The cardiomediastinal silhouette and pulmonary vasculature are unremarkable. There is no focal airspace consolidation, pleural effusion, or pneumothorax. No displaced fractures. IMPRESSION: No acute cardiopulmonary process. Dictated by Gabriel Hernandez MD @ 02/01/2024 3:39:54 PM (Electronically Signed)
--- NOTE | 2024-02-01 15:06 | CRLHL7_ITS ---
For Patients: As a result of the Century Cures Act, medical imaging exams and procedure reports are released immediately into your electronic medical record. You may view this report before your referring provider. If you have questions, please contact your health care provider. Indication: SEVERE LT SIDED TEMPORAL GOMEZ INTERMITTENT Technique: CT of the head without contrast. Coronal and sagittal reformats. Bone and soft tissue windows. Comparison: No prior studies available for comparison at this institution. Findings: No acute intracranial hemorrhage or extra-axial collection. No evidence of acute cortical infarction. No mass effect or midline shift. Normal cerebral volume. The ventricles are normal in size, shape and contour. There is normal hagen and white matter differentiation. There is a 1.3 x 1.3 cm low-density sellar mass that could represent adenoma. This appears to abut the optic chiasm without mass effect. The orbital contents are normal. No calvarial fractures. No lytic or sclerotic osseous lesions within the calvarium or skull base. Scalp and other imaged soft tissue structures are normal. Mastoid air cells are clear. Small fluid level in the right sphenoid sinus. Impression: 1. No acute intracranial abnormality. 2. There is suggestion of a 1.3 x 1.3 cm low-density sellar mass that could represent adenoma. This appears to abut the optic chiasm without mass effect. MRI with contrast is offered for further evaluation. Please note that all CT scans at this facility use dose modulation, iterative reconstruction, and/or weight-based dosing when appropriate to reduce radiation dose to as low as reasonably achievable. Dictated by Mynor Scott MD @ 02/01/2024 4:58:44 PM (Electronically Signed)
--- NOTE | 2024-02-01 15:09 | CRLHL7_ITS ---
For Patients: As a result of the Century Cures Act, medical imaging exams and procedure reports are released immediately into your electronic medical record. You may view this report before your referring provider. If you have questions, please contact your health care provider. CLINICAL HISTORY: Severe left-sided headache. TECHNIQUE: Standard helical CT image acquisition through the neck was performed after intravenous contrast bolus enhancement. 3D and MIP reconstructions were performed at a separate workstation and permanently archived. COMPARISON: None available. FINDINGS: The origins of the great vessels from the aortic arch are patent. The common carotid arteries are patent. No significant luminal stenoses of the proximal ICAs by NASCET criteria. The more distal cervical segments of the ICAs are patent. The origins and cervical segments of the vertebral arteries are patent. IMPRESSION: Patent cervical arterial vasculature without hemodynamically significant luminal stenosis. Please note that all CT scans at this facility use dose modulation, iterative reconstruction, and/or weight-based dosing when appropriate to reduce radiation dose to as low as reasonably achievable. Dictated by Delano Fagan MD @ 02/02/2024 10:32:58 AM (Electronically Signed)
--- NOTE | 2024-02-01 15:09 | CRLHL7_ITS ---
For Patients: As a result of the Century Cures Act, medical imaging exams and procedure reports are released immediately into your electronic medical record. You may view this report before your referring provider. If you have questions, please contact your health care provider. CLINICAL HISTORY: Severe left-sided headache. TECHNIQUE: Standard helical CT image acquisition through the head following the administration of intravenous contrast was performed. 3D and MIP reconstructions were performed at a separate workstation and permanently archived. COMPARISON: None available. FINDINGS: No intracranial proximal large vessel occlusion or flow-limiting luminal stenosis. No evidence of cerebral aneurysm. No findings to suggest an arterial-venous shunting lesion. The major dural venous sinuses and deep venous system are patent. IMPRESSION: No intracranial proximal large vessel occlusion, flow-limiting luminal stenosis, or cerebral aneurysm. Please note that all CT scans at this facility use dose modulation, iterative reconstruction, and/or weight-based dosing when appropriate to reduce radiation dose to as low as reasonably achievable. Dictated by Delano Fagan MD @ 02/02/2024 10:36:09 AM (Electronically Signed)
[2024-02-01 15:15] LABS: Basophils Absolute Auto 0.03 K/uL (0.00-0.30); Basophils Percent Auto 0.4 % (0.0-3.0); Eosinophils Absolute Auto 0.08 K/uL (0.00-0.50); Eosinophils Percent Auto 1.2 % (0.0-7.0); Hematocrit 44.8 % (37.0-53.0); Hemoglobin* 15.6 gm/dL (13.5-17.5); Immature Granulocytes Abs Auto 0.01 K/uL (0.00-0.30); Immature Granulocytes Pct Auto 0.1 %; Lymphocytes Absolute Auto 2.01 K/uL (0.90-2.90); Lymphocytes Percent Auto 30.1 % (20-44); Mean Corpuscular HGB Conc 35 gm/dL (32-36); Mean Corpuscular Hemoglobin 29 pg (26-34); Mean Corpuscular Volume 83 fL (80-100); Monocytes Percent Auto 8.2 % (0.0-11.0); Neutrophils Absolute Auto 3.99 K/uL (1.7-7.0); Platelet Count* 224 K/uL (140-440); RDW Coefficient of Variation % 13.5 % (11.5-15.5); Red Blood Count 5.41 m/uL (4.30-5.90); White Blood Count* 6.67 K/uL (4.50-11.00)
--- OUTSIDE RECORDS SUMMARY | 2024-02-01 15:15 | XMS_ITS | Clinical Summary ---
Author Organization [facility] Address [place], [place] [address] Care Team Providers Care Computer Technology Trainer Name Role Phone Chhaya Hogan MD Primary Care Provider [phone] Allergies No known active allergies Medications Medication Sig Dispensed Refills Start Date End Date Status cholecalciferol (VITAMIN D) 1,000 unit capsule Take 1 capsule by mouth once daily. 3 capsule 10/25/2018 Active Dtflf-6-UBM-EPA-Fis h Oil 1,000 mg (120 mg-180 mg) cap Take 2 capsules by mouth. 0 10/25/2018 Active CPAPIndications:Obs tructive sleep apnea CPAP machine for home use at pressure: 6 CM H20 , Heated humidifier x 1, Humidifier chamber x 1, Full face mask with cushion x 1, Heated tubing x 1, Headgear x 1, Filters: Disposable x 1pk & Reusable x 1pk, Length of Need: 99 months, Frequency of use: Daily 1 Device 01/24/2019 Active CPAPIndications:Obs tructive sleep apnea CPAP machine for home use at pressure: 6 CM H20 , Heated humidifier x 1, Humidifier chamber x 1, Nasal mask with cushion x 1, Heated tubing x 1, Headgear x 1, Filters: Disposable x 1pk & Reusable x 1pk, Length of Need: 99 months, Frequency of use: Daily 1 Device 11 01/24/2019 Active CPAPIndications:Obs tructive sleep apnea CPAP machine for home use at pressure: 6 CM H20 , Heated humidifier x 1, Humidifier chamber x 1, nasal mask with cushion x 1, Heated tubing x 1, Headgear x 1, Filters: Disposable x 1pk & Reusable x 1pk, Length of Need: 99 months, Frequency of use: Daily 1 Device 11 01/24/2019 Active CPAPIndications:Obs tructive sleep apnea CPAP machine for home use at pressure: 6 CM H20 , Heated humidifier x 1, Humidifier chamber x 1, Full face mask with cushion x 1, Heated tubing x 1, Headgear x 1, Filters: Disposable x 1pk & Reusable x 1pk, Length of Need: 99 months, Frequency of use: Daily 1 Device 11 03/22/2019 Active amLODIPine (NORVASC) 10 mg tabletIndications:H TN (hypertension) Take 1 Tablet (10 mg) by mouth once daily. 90 Tablet 3 07/02/2021 Active rosuvastatin (CRESTOR) 10 mg tabletIndications:E levated coronary artery calcium score Take 1 Tablet (10 mg) by mouth at bedtime. 90 Tablet 3 01/25/2024 Active aspirin (ECOTRIN) 81 mg enteric coated tabletIndications:E levated coronary artery calcium score Take 1 Tablet (81 mg) by mouth once daily with a meal. 100 Tablet 3 01/25/2024 Active Active Problems Problem Noted Date Diagnosed Date KELTON (obstructive sleep apnea) 12/14/2018 CSA (central sleep apnea) 12/14/2018 Routine adult health maintenance 02/03/2018 Overview (02/03/2018): Colonoscopy 01/2018 normal, repeat in 10 years, PEG 8L Encounters Date Type Department Care Team Description 02/01/2024 Nurse Triage [facility] [address] [place] [address] Chhaya Hogan MD Chest Pain 02/01/2024 Nurse Triage [facility] [address] [place] [address] Chhaya Hogan MD 01/21/2024 8:07 AM COMMUNITY SUPPORT WORKER - 01/21/2024 11:59 PM COMMUNITY SUPPORT WORKER Hospital Encounter [facility] [address] [place] [address] Chhaya Hogan MD HTN (hypertension) 01/21/2024 Travel 01/14/2024 11:15 AM COMMUNITY SUPPORT WORKER Office Visit [facility] [address] [place] [address] hChaya Hogan MD Ankle Pain/problem (Right ankle, chronic); Derm Problem (Spot on right buttock ) 01/14/2024 Telephone [facility] [address] [place] [address] Chhaya Hogan MD Questions 01/14/2024 Travel 01/09/2024 Travel from Last 3 Months Immunizations Name Administration Dates Next Due Td (Age >=7 Years) 12/23/1989 Tdap 01/14/2024 Family History Medical History Relation Name Comments Hypertension Mother Relation Name Status Comments Mother Social History Tobacco Use Types Packs/Day Years Used Date Smoking Tobacco: Never Smokeless Tobacco: Never Tobacco Cessation:Counseling Given: Not Answered Alcohol Use Standard Drinks/Week Comments Yes 0 (1 standard drink = 0.6 oz pur e alcohol) occ PHQ-2 Answer Date Recorded PHQ-2 TOTAL SCORE 0 02/20/2022 Social Connections Answer Date Recorded Do you often feel lonely or isolated from those around you? 0 01/09/2024 Financial Resource Strain Answer Date R ecorded Difficulty of Paying Living Expenses 3 01/09/2024 Difficulty of Paying Living Expenses Not on file 01/09/2024 Food Insecurity Answer Date Recorded Do you worry your food will run out before you are able to buy more? 1 01/09/2024 Transportation Needs Answer Date Record ed Does lack of transportation keep you from medica l appointments? 1 01/09/2024 Does lack of transportation keep you from work, meetings or getting things that you need? 1 01/09/2024 Housing Stability Answer Date Recorded What is your housing situation today? 1 01/09/2024 Sex and Gender Information Value Date Recorded Sex Assigned at Not on file Gender Identity Not on file Sexual Orientation Not on file Obstetrics History Last Filed Vital Signs Vital Sign Reading Time Taken Comments Blood Pressure 156/89 01/14/2024 11:28 AM COMMUNITY SUPPORT WORKER Pulse 63 01/14/2024 11:28 AM COMMUNITY SUPPORT WORKER Temperature 36.8 C (98.2 F) 02/20/2022 3:22 PM COMMUNITY SUPPORT WORKER Respiratory Rate 18 03/22/2019 11:0 5 AM COMMUNITY SUPPORT WORKER Oxygen Saturation 99% 01/14/2024 11: 28 AM COMMUNITY SUPPORT WORKER Inhaled Oxygen Concentration - - Weight 101.1 kg (222 lb 12.8 oz) 2023 11:28 AM COMMUNITY SUPPORT WORKER Height 182.9 cm (6') 02/20/2022 3:22 PM COMMUNITY SUPPORT WORKER Body Mass Index 30.22 02/20/2022 3:22 PM COMMUNITY SUPPORT WORKER Plan of Treatment Upcoming Encounters Date Type Department Care Team (Late st Contact Info) Description 03/09/2024 8:30 AM COMMUNITY SUPPORT WORKER Office Visit [facility] [address] [place] [address] Louis Yoon DPM [address] [place] [address] 03/17/2024 8:30 AM COMMUNITY SUPPORT WORKER Office Visit [facility] [address] [place] [address] Vivek Madrigal MD [address] [place] [address] Health Maintenance Due Date Last Done Comments HIV for age 15-65 1977 Hepatitis C screening for age 18-79 1980 Zoster (shingles) series for age 50+ (1 of 2) 2012 BMI (ht and wt on same day) for age 18+ 02/20/2023 02/20/2022, 03/22/2019, 11/25/2018, Additional history exists Depression screening for age 12+ 02/20/2023 02/20/2022, 02/20/2022, 11/25/2018, Additional history exists Lipids for age 45-75 10/26/2023 10/25/2018 COVID-19 vaccine series ( season) 2023 Influenza for age 50-64 11/01/2023 Colonoscopy through age 75 02/04/202802/03, 02/03/2018, 02/03/2018 Tetanus booster 01/13/2034 01/14/2024, 12/23/1989 Tdap Completed 01/14/2024 Pneumococcal series for age 6-64 Aged Out No longer eligible based on patient's age to complete this topic Procedures Procedure Name Priority Date/Time Associated Diagnosis Comments CT CARDIAC CALCIUM SCORE ONLY WO SINGLE READ Routine 01/21/2024 8:26 AM COMMUNITY SUPPORT WORKER HTN (hypertension) PATH TISSUE EXAM Routine 01/14/2024 12:0 4 PM COMMUNITY SUPPORT WORKER Skin lesion LIPID PANEL W REFLEX MEASURED LDL Routine 10/25/2018 12:21 PM CDT HTN (hypertension) COLONOSCOPY 02/03/2018 7:41 AM COMMUNITY SUPPORT WORKER from Last 3 Months or Most Recently Relevant to Health Maintenance Results * CT CARDIAC CALCIUM SCORE ONLY WO SINGLE READ (01/21/2024 8:26 AM COMMUNITY SUPPORT WORKER) Anatomical Region Laterality Modality Computed Tomogra phy Impressions 01/21/2024 11:21 AM COMMUNITY SUPPORT WORKER The coronary artery calcium score of 38.6 is consistent with mild calcification. Please note that all CT scans at this facility use dose modulation, iterative reconstruction and/or weight-based dosing when appropriate to reduce radiation dose to as low as reasonably achievable. ZEESHAN HOLLINGSWORTH M.D. [email or web address] HENRY/georges Narrative 01/21/2024 11:21 AM COMMUNITY SUPPORT WORKER Table formatting from the original result was not included. For Patients: As a result of the Cures Act, medical imaging exams and procedure reports are released immediately into your electronic medical record. You may view this report before your referring provider. If you have questions, please contact your health care provider. CT CARDIAC CALCIUM SCORING, 01/21/2024 PATIENT HISTORY: Coronary artery disease screening. REPORT: High-resolution, ECG-synchronized computed tomography of the heart with attention to the coronary arteries was performed using Siemens RiseHealthView CT. Coronary calcification analyzed using Siemens calcium scoring software. These are the results of the evaluation: Artery Number of Lesions Volume Equiv. Mass Calcium Score LM 0 0.0 0.00 0.0 LAD 2 30.5 5.32 23.7 CX 0 0.0 0.00 0.0 RCA 1 16.1 2.48 14.8 TOTAL 3 46.6 7.80 38.6 Threshold: 130 HU (102.7 mg/cm3 CaHA) *) Calibration factor: 0.790 mg/(HUcm3) CaHA The Computed Tomography of the coronary arteries detected coronary calcifications. According to the current state of knowledge (O'Vishnu, Circulation 2000; 102:126), coronary calcifications are a marker for coronary atherosclerosis. The more calcium is detected, the higher is the likelihood for an obstructive coronary disease. However, there is no unique relationship between the amount of detected calcium and the extent or localization of this disease. The amount of calcium is closely correlated with the extent of coronary atherosclerosis, although the true plaque burden is underestimated. With a high amount of coronary calcium, a moderate to high risk of a cardiovascular event within the next 2 to 5 years can be assumed. No Identifiable Calcification Minimal Identifiable Calcification Mild Calcification Moderate Calcification Significant Calcification 0 1-10 11-100 101-400 401 and above (Following [facility] Clin Proc. 1999;74(3):243-252) COMMENT: Limited visualization of the lung walters are clear. Heart size normal. Chhaya Hogan MD CT * PATH TISSUE EXAM (01/14/2024 12:04 PM COMMUNITY SUPPORT WORKER) Case Report Pathology Report Case: [id number] Authorizing Provider: Chhaya Hogan MD Collected: 01/14/2024 1204 Ordering Location: [facility] Received: 01/14/2024 1620 Clinic Pathologist: Fidel Marc Jr., MD Specimen: Skin Shave 01/18/2024 5:03 PM COMMUNITY SUPPORT WORKER [facility] Final Diagnosis SKIN, BIOPSY: 1. Skin tag (also known as acrochordon or fibroepithelial polyp) 2. Negative for malignancy 01/18/2024 5:03 PM COMMUNITY SUPPORT WORKER [facility] Clinical Information Skin lesion 01/18/2024 5:03 PM COMMUNITY SUPPORT WORKER [facility] Gross Description A) Received in formalin, labeled with the patient's name and date of , is a 1.5 x 1.0 x 0.6 cm shave of valdovinos-pink polypoid skin. The specimen is inked green, serially section and entirely submitted in 1 cassette. JKT 01/15/2024 01/18/2024 5:03 PM COMMUNITY SUPPORT WORKER [facility] Microscopic Description The final diagnosis is based on microscopic examination of appropriate sections of all specimens. There is a polypoid growth of essentially normal skin. The presence of green ink is confirmed on tissue sections. 01/18/2024 5:03 PM COMMUNITY SUPPORT WORKER [facility] Additional Information Interpreted at [facility] - [address] [facility] [address], [place] [address] 01/18/2024 5:03 PM COMMUNITY SUPPORT WORKER [facility] Other SPECIMEN FROM SKIN / Unknown Non-Blood / Unknown 01/14/2024 12:04 PM COMMUNITY SUPPORT WORKER 01/14/2024 4:20 PM COMMUNITY SUPPORT WORKER Chhaya Hogan MD PATHOLOGY/CYTOLOGY [facility] [address] [place] [address], * (ABNORMAL) LIPID PANEL W REFLEX MEASURED LDL (10/25/2018 12:21 PM CDT) CHOLESTEROL,TOTAL 209(H) 100 - 199 mg/dL 10/25/2018 8:39 PM CDT [facility] TRIGLYCERIDES 141 <150 mg/dL 10/25/2018 8:39 PM CDT [facility] HDL CHOLESTEROL 47 >40 mg/dL 9 8:39 PM CDT [facility] NON-HDL CHOLESTEROL 162(H) <145 mg/dl 10/25/2018 8:39 PM CDT [facility] CHOL/HDL RATIO 4.45 <4.50 10/25/2018 8:39 PM CDT [facility] LDL CHOLESTEROL 134(H) <=130 mg/dL 10/25/2018 8:39 PM CDT [facility] PROVIDER ORDERED STATUS RANDOM 10/25/2018 8:39 PM CDT [facility] Blood BLOOD SPECIMEN / Unknown Venipuncture / Unknown 10/25/2018 12:21 PM CDT 10/25/2018 12:21 PM CDT Chhaya Hogan MD CHEMISTRY [facility] [address] [place] [address], [place] * COLONOSCOPY (02/03/2018 7:41 AM COMMUNITY SUPPORT WORKER) 02/03/2018 7:41 AM COMMUNITY SUPPORT WORKER Narrative Transcriptions Twin Pierce MD - 02/03/2018 9:14 AM CST Patient Name: Jerman Melendez Procedure Date: 02/03/2018 Gender: Male Date of : 1960 Admit Type: Outpatient Procedure: Colonoscopy Proceduralist: Twin Pierce MD , Lilly Goff (Nurse) Referring MD: Jerman Starks Indications/Pre-Op Diagnosis: Screening for colorectal malignant neoplasm, This is the patient's first colonoscopy Medications: Fentanyl 200 micrograms IV, Midazolam 6 mgIV, Flumazenil 0.5 mg IV Procedure Description: The patient had risks, benefits and alternatives explained to andgave informed consent. The patient had a stable cardiopulmonary status and judged an adequate candidate for conscious sedation. The [id number] was passed through the anus and advanced tothe cecum, identified by appendiceal orifice and ileocecal valve. The colonoscopy was performed without difficulty. The patient toleratedthe procedure well. The quality of the bowel preparation was excellent.The ileocecal valve, appendiceal orifice, and rectum were photographed. Complications: Reversal agent administered for momentary oxygen desaturation. Normal oxygenationafter initial desaturation. Estimated Blood Loss & Specimen: Estimated blood loss: none. Specimen collected - None Findings: The colon (entire examined portion) was mildly redundant. The exam was otherwise without abnormality on direct and retroflexion views. Impressions/Post-Op Diagnosis: - Redundant colon. - The examination was otherwise normal on direct and retroflexionviews. - No specimens collected. Recommendation: - Patient has a contact number available for emergencies. The signsand symptoms of potential delayed complications were discussed with the patient. Return to normal activities tomorrow. Written discharge instructions were provided to the patient. - Resume previous diet. - Continue present medications. - Repeat colonoscopy in 10 years for screening purposes. - For future colonoscopy the patient will require an extended preparation, PEG 8L. If there are any questions, please contact the copy chief. Moderate Sedation: Moderate (conscious) sedation was administered by the endoscopy nurse and supervised by the endoscopist. The following parameters were monitored: oxygen saturation, heart rate, respiratory rate, blood pressure, adequacy of pulmonary ventilation and reponse to care. Please [facility] flowsheets and nursing notes for moderate sedation details. Total physician intraservice time was 22 minutes. Twin Pierce MD 02/03/2018 9:13:53 AM This report has been signed electronically. Note Initiated On: 02/03/2018 7:41 AM Procedure Code(s): --- Professional --- 11154, Colonoscopy, flexible; diagnostic, including collection of specimen(s) bybrushing or washing, when performed (separateprocedure) Diagnosis Code(s): --- Professional --- Z12.11, Encounter for screening formalignant neoplasm of colon Q43.8, Other specified congenitalmalformations of intestine CPT copyright 2017 [employer]. All rights reserved. The codes documented in this report are preliminary and upon senior php software developer reviewmay be revised to meet current compliance requirements. Scope In: 8:40:03 AM Scope Withdrawal Time 0 hours 9 minutes 14 seconds Scope Out: 8:59:32 AM Twin Pierce MD PROCEDURE ORD from Last 3 Months or Most Recently Relevant to Health Maintenance Care Teams Computer Technology Trainer Relationship Specialty Start Date End Date Chhaya Hogan MD [address] [place] [address] PCP - General Family Practice 11/25/18
[2024-02-01 15:16] LABS: Slide Review Reflex No
[2024-02-01 15:28] LABS: Albumin* 4.7 g/dL (3.3-5.0); Chloride* 106 mmol/L (96-114)
[2024-02-01 15:29] LABS: Sodium* 143 mmol/L (135-149)
[2024-02-01 15:31] LABS: Bilirubin Total* 1.2 mg/dL (0.1-1.5); Creatinine* 0.9 mg/dL (0.5-1.5); Est. Creatinine Clearance* 82.62; Estimated Glomerular Filt Rate 97 ml/min
[2024-02-01 15:32] LABS: Alanine Aminotransferase* 31 U/L (4-50); Alkaline Phosphatase* 69 U/L (40-150); Anion Gap 7 mEq/L (7-15); Aspartate Amino Transferase* 23 U/L (12-35); Blood Urea Nitrogen* 18 mg/dL (7-30); Calcium* 9.2 mg/dL (8.4-10.6); Carbon Dioxide* 30 mmol/L (20-32); Glucose* 112 mg/dL (60-115); Magnesium* 2.2 mg/dL (1.5-2.6); Total Protein* 7.6 g/dL (6.0-8.3)
[2024-02-01 15:44] LABS: C Reactive Protein* < 0.5 mg/dL (0.5-1.0); NT Pro B Type NatriureticPept* < 20 pg/mL; Troponin I* < 0.01 ng/mL (0.01-0.04)
[2024-02-01 16:00] LABS: Erythrocyte SedimentationRate* 7 mm/hr (2-15)
[2024-02-01] MEDS: POTASSIUM BICARB 25 MEQ EFFERVESCENT TAB 50 MEQ PO (17:33)
--- NOTE | 2024-02-01 17:46 | CRLHL7_ITS ---
For Patients: As a result of the 21st Century Cures Act, medical imaging exams and procedure reports are released immediately into your electronic medical record. You may view this report before your referring provider. If you have questions, please contact your health care provider. INDICATION: Left lower chest/upper abdominal pain. COMPARISON: None available. TECHNIQUE: CT of the chest, abdomen and pelvis with 103 cc of Isovue 370 intravenous contrast. Please note that all CT scans at this facility use dose modulation, iterative reconstruction, and/or weight-based dosing when appropriate to reduce radiation dose to as low as reasonably achievable. FINDINGS: THORAX Visualized Lower Neck: No lower cervical adenopathy. Lungs: No significant pulmonary findings. Inferior lingular segment left upper lobe pleural-based curvilinear opacity consistent with subsegmental atelectasis or nonspecific minor fibrosis. Pleura: No pleural effusion. No pneumothorax. Mediastinum: Thoracic aorta and pulmonary trunk are normal in caliber. Heart and pericardium are without significant findings. Trachea and esophagus are normal in appearance. No mediastinal lymphadenopathy. ABDOMEN Liver: Normal contour and attenuation. No significant focal lesion. Ill-defined arterial phase enhancing focus in the inferior right hepatic lobe (2; 100) which fades to isointensity on the portal venous phase images most consistent with a nonspecific vascular malformation. Simple left hepatic lobe cysts. No intrahepatic biliary ductal dilatation. Patent portal veins. Patent hepatic veins. Gallbladder: Normal size. No pericholecystic inflammatory changes. Normal common duct caliber. Pancreas: Normal contour and attenuation. No peripancreatic inflammatory changes. No significant focal lesion. Normal main duct caliber. Spleen: Not enlarged. No significant focal lesion. Punctate splenic calcifications consistent with the sequela of old granulomatous disease are noted incidentally. 1.6 cm splenic artery aneurysm (2; 166). Patent splenic artery and vein. Adrenal Glands: Symmetrical adrenal glands. No significant focal lesion. Kidneys: Normal bilateral renal attenuation. 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 Bilateral parapelvic cysts. No nephrolith. No dilatation of the intrarenal collecting systems. No ureteral stone. Nondilated ureters. No filling defect within the opacified upper urinary tracts. Patent renal arteries and veins. Gastrointestinal tract: Normal caliber, attenuation and wall thickness of the gastrointestinal tract. No inflammatory changes. Normal small bowel mesentery. Normal appendix. Vascular: Minimal chronic aortoiliac atherosclerotic mural calcification. Abdominal aorta and its major proximal branches including the celiac, superior mesenteric, inferior mesenteric, renal, and bilateral common iliac arteries are patent. Patent superior mesenteric vein. Peritoneal Cavity/Retroperitoneum: No ascites. No adenopathy. PELVIS No bladder lesion is identified. Fat stranding about the seminal vesicles is consistent with seminal vesiculitis. No ascites. No adenopathy. SKELETON AND BODY WALL No acute or significant incidental findings. IMPRESSION: 1. No imaging findings to explain left lower chest/upper abdominal pain. 2. 1.6 cm splenic artery aneurysm. 3. Fat stranding about the seminal vesicles is consistent with seminal vesiculitis. 4. Incidental findings described above. Please note that all CT scans at this facility use dose modulation, iterative reconstruction, and/or weight-based dosing when appropriate to reduce radiation dose to as low as reasonably achievable. Dictated by Tera Medeiros MD @ 02/01/2024 7:25:35 PM (Electronically Signed)
[2024-02-01] MEDS: 0.9 % SODIUM CHLORIDE 500 ML 500 ML IV (18:48)
== END 2024-02-01 20:02 | disposition home or self-care (01) ==
PROVIDERS: Emergency Provider Family Medicine; PCP Family Medicine
DX: E87.6 Hypokalemia (principal); R51.9 Headache, unspecified; R07.9 Chest pain, unspecified
CPT/HCPCS: 36415; 70450; 70496; 70498; 71045; 71260; 74177; 80053; 83735; 83880; 84484; 85025; 85651; 86140; 93005; 94761; 99284; 99285; A9270; J7030; Q9967

== ENCOUNTER 2024-02-02 14:09 | Outpatient (CLI) | payer SELFPAY ==
--- OUTSIDE RECORDS SUMMARY | 2024-02-02 14:13 | XMS_ITS | Clinical Summary ---
Author Organization [email or web address] [facility] Address [place], [place] [address] Care Team Providers Care Stoker Installation Mechanic Name Role Phone Chhaya Hogan MD Primary Care Provider [phone] Allergies No known active allergies Medications Medication Sig Dispensed Refills Start Date End Date Status cholecalciferol (VITAMIN D) 1,000 unit capsule Take 1 capsule by mouth once daily. 3 capsule 10/25/2018 Active [id number]-Fis h Oil 1,000 mg (120 mg-180 mg) [...] Department Care Team Description 02/01/2024 Nurse Triage [facility] [address] [place] [address] Chhaya Hogan MD Chest Pain 02/01/2024 Nurse Triage [facility] [address] [place] [address] Chhaya Hogan MD Chest Pain 01/21/2024 8:07 AM [facility]OST [facility] HOSTESS - 01/21/2024 11:59 PM [facility]OST[facility] Hospital Encounter [facility] [address] [facility] [place] [address] Chhaya Hogan MD HTN (hypertension) 01/21/2024 Travel 01/14/2024 11:15 AM [facility]OSTESS Office Visit [facility] [address] [place] [address] Chhaya Hogan MD Ankle Pain/problem (Right ankle, chronic); Derm Problem (Spot on right buttock ) 01/14/2024 Telephone [facility] [address] [facility] [place] [address] Chhaya Hogan MD Questions 01/14/2024 Travel 01/09/2024 [...] Comments Blood Pressure 156/89 01/14/2024 11:28 AM [facility] HOSTESS Pulse 63 01/14/2024 11:28 AM [facility]OST[facility] Temperature 36.8 C (98.2 F) 02/20/2022 3:22 PM [facility]OST[facility] Respiratory Rate 18 03/22/2019 11:0 5 AM [facility] HOSTESS Oxygen Saturation 99% 01/14/2024 11: 28 AM [facility] AND HOSTESS Inhaled Oxygen Concentration - - Weight 101.1 kg (222 lb 12.8 oz) 2023 11:28 AM [facility] HOSTESS Height 182.9 cm (6') 02/20/2022 3:22 PM [facility] HOSTESS Body Mass Index 30.22 02/20/2022 3:22 PM [facility]OST AND HOSTESS Plan of Treatment Upcoming Encounters Date Type Department Care Team (Late st Contact Info) Description 02/02/2024 2:30 PM [facility] AND HOSTESS Ancillary Procedure [facility] [address] [place] [address] 02/11/2024 12:45 PM [facility] AND HOSTESS Office Visit [facility] [address] [place] [address] Chhaya Hogan MD [address] [place] [address] 03/09/2024 8:30 AM [facility] AND [facility]OSTESS Office Visit [facility] [address] [place] [address] Louis Yoon DPM [address] [place] [address] 03/17/2024 8:30 AM [facility] AND HOSTESS Office Visit [facility] [address] [place] [address] Vivek Madrigal MD [address] [place] [address] Health Maintenance Due Date Last Done Comments [...] WO SINGLE READ Routine 01/21/2024 8:26 AM HOST AND HOSTESS HTN (hypertension) PATH TISSUE EXAM Routine 01/14/2024 12:0 4 PM [facility] AND HOSTESS Skin lesion LIPID PANEL W REFLEX MEASURED LDL Routine 10/25/2018 12:21 PM CDT HTN (hypertension) COLONOSCOPY 02/03/2018 7:41 AM HOST AND HOSTESS from Last 3 Months or Most Recently Relevant to Health Maintenance Results * CT CARDIAC CALCIUM SCORE ONLY WO SINGLE READ (01/21/2024 8:26 AM HOST AND HOSTESS) Anatomical Region Laterality Modality Computed Tomogra phy Impressions 01/21/2024 11:21 AM HOST AND HOSTESS The coronary artery calcium score of 38.6 is consistent with mild calcification. Please note that all CT scans at this facility use dose modulation, iterative reconstruction and/or weight-based dosing when appropriate to reduce radiation dose to as low as reasonably achievable. ZEESHAN HOLLINGSWORTH M.D. [employer] [email or web address] Narrative 01/21/2024 11:21 AM HOST AND HOSTESS Table formatting from the original result was not included. For Patients: As a result of the Century Cures Act, medical imaging exams and procedure [...] the coronary arteries was performed using Siemens HeartView CT. Coronary calcification analyzed using Siemens calcium [...] * PATH TISSUE EXAM (01/14/2024 12:04 PM HOST AND HOSTESS) Case Report Pathology Report Case: [id number] Authorizing Provider: Chahya Hogan MD Collected: 01/14/2024 1204 Ordering Location: [facility] Received: 01/14/2024 1620 Clinic Pathologist: Fidel Marc Jr., MD Specimen: Skin Shave 01/18/2024 5:03 PM [facility]OST[facility] Final Diagnosis SKIN, BIOPSY: 1. Skin tag (also known as acrochordon or fibroepithelial polyp) 2. Negative for malignancy 01/18/2024 5:03 PM [facility]OSTESS [facility] Clinical Information Skin lesion 01/18/2024 5:03 PM [facility] AND HOSTESS [facility] Gross Description A) Received in formalin, labeled with the patient's name and date of , is a 1.5 x 1.0 x 0.6 cm shave of valdovinos-pink polypoid skin. The specimen is inked green, serially section and entirely submitted in 1 cassette. JKT 01/15/2024 01/18/2024 5:03 PM [facility] AND HOSTESS [facility] Microscopic Description The final diagnosis is based on microscopic examination of appropriate sections of all specimens. There is a polypoid growth of essentially normal skin. The presence of green ink is confirmed on tissue sections. 01/18/2024 5:03 PM [facility]OSTESS [facility] Additional Information Interpreted at [facility] - [address] [facility] [address] [address] 01/18/2024 5:03 PM [facility] Other SPECIMEN FROM SKIN / Unknown Non-Blood / Unknown 01/14/2024 12:04 PM [facility]OST AND HOSTESS 01/14/2024 4:20 PM [facility] AND HOSTESS Chhaya Hogan MD PATHOLOGY/CYTOLOGY [facility] [address] [place] [address], * (ABNORMAL) LIPID PANEL W REFLEX MEASURED LDL (10/25/2018 12:21 PM CDT) CHOLESTEROL,TOTAL 209(H) 100 - 199 mg/dL 10/25/2018 8:39 PM CDT [facility] TRIGLYCERIDES 141 <150 mg/dL 10/25/2018 8:39 PM CDT [facility] HDL CHOLESTEROL 47 >40 mg/dL 9 8:39 PM CDT [facility] NON-HDL CHOLESTEROL 162(H) <145 mg/dl 10/25/2018 8:39 PM CDT [facility] CHOL/HDL RATIO 4.45 <4.50 10/25/2018 8:39 PM CDT [facility] LDL CHOLESTEROL 134(H) <=130 mg/dL 10/25/2018 8:39 PM CDT [facility] PROVIDER ORDERED STATUS RANDOM 10/25/2018 8:39 PM CDT [facility] Blood BLOOD SPECIMEN / Unknown Venipuncture / Unknown 10/25/2018 12:21 PM CDT 10/25/2018 12:21 PM CDT Chhaya Hogan MD CHEMISTRY [facility] [address] [place] [address], [place] * COLONOSCOPY (02/03/2018 7:41 AM HOST AND HOSTESS) 02/03/2018 7:41 AM [facility]OST AND HOSTESS Narrative Transcriptions Twin Pierce MD - 02/03/2018 [...] adequate candidate for conscious sedation. The [id number] was passed through the anus and advanced [...] there are any questions, please contact the research and development scientist. Moderate Sedation: Moderate (conscious) sedation was administered by the endoscopy nurse and supervised by the endoscopist. The following parameters were monitored: oxygen saturation, heart rate, respiratory rate, blood pressure, adequacy of pulmonary ventilation and reponse to care. [facility] and nursing notes for moderate sedation details. Total physician intraservice time was 22 minutes. wTin Pierce MD 02/03/2018 9:13:53 AM This report has been signed electronically. Note Initiated On: 02/03/2018 7:41 AM Procedure Code(s): --- Professional --- 22026, Colonoscopy, flexible; diagnostic, including collection of specimen(s) bybrushing or washing, when performed (separateprocedure) Diagnosis Code(s): --- Professional --- Z12.11, Encounter for screening formalignant neoplasm of colon Q43.8, Other specified congenitalmalformations of intestine CPT copyright 2017 [employer]. All rights reserved. The codes documented in this report are preliminary and upon chief electrician reviewmay be revised to meet current compliance requirements. Scope In: 8:40:03 AM Scope Withdrawal Time 0 hours 9 minutes 14 seconds Scope Out: 8:59:32 AM Twin Pierce MD PROCEDURE ORD from Last 3 Months or Most Recently Relevant to Health Maintenance Care Teams Stoker Installation Mechanic Relationship Specialty Start Date End Date Chhaya Hogan MD [address] [place] [address] PCP - General Family Practice 11/25/18
[2024-02-02 15:08] VITALS: BP 110/74; PULSE 99; RESP 16
--- NOTE | 2024-02-02 15:21 | W.PM.STED ---
Stress Test Note Date Date of test: 02/02/24 Providers Primary care provider: Chhaya Hogan Stress test physician: Ez Mills Stress Test Note Stress test ordered: Stress Echo Indication for test: Chest pain Results discussion: This pleasant gentleman presents for the above test after discussion the risks benefits side effects he would like to proceed pretest EKG shows normal sinus rhythm with a ventricular rate of 68 blood pressure 146 on 72. No acute ST wave changes are noted. Standard stress echo protocol is employed over a time course of 10 minutes. He achieved a metabolic equivalent of 11.5 Mets, maximum heart rate of 159 which is 117% of the maximum. Maximum blood pressure is 1 80-184. Test is terminated because of fulfillment of protocol he had no symptoms of chest pain shortness of breath or any other issue. Very mild ST wave depression is noted, and reassuring the upsloping noted in leads 2 3 and AVF with a maximum of 2 mm, and 1 mm of depression is noted laterally in V4 V5 V6. These changes are indeterminate. And did resolve in the recovery. Again, he did not have any subjective complaints. Impression: Indeterminate tracing, given high workload I favor this is normal, subjectively negative Follow up suggested: Await echo imaging, this will be read, reviewed by Cardiology, clinical correlation with this will be needed. Patient left this testing facility and good condition. He will follow-up with .
== END 2024-02-02 15:16 | disposition home or self-care (01) ==
LOC: STRESS 14:11
PROVIDERS: PCP Family Medicine; Visit Provider Family Medicine
DX: R07.89 Other chest pain (principal)
CPT/HCPCS: 93016; 93325; 93351